=== PATIENT | female | born 1965 | race Caucasian/White ===

== ENCOUNTER 2019-07-06 21:34 | Emergency (ER) | payer MEDICARE ==
[~2019-07-06] VITALS: Ht 165.1 cm; Wt 78.2 kg
[2019-07-06 21:41] VITALS: Ht 165.1 cm; Wt 78.2 kg
[2019-07-06 22:46] VITALS: BP 129/90
== END 2019-07-06 22:47 | disposition home or self-care (01) ==
LOC: D.ER 21:34
DX: F15.10 Other stimulant abuse, uncomplicated (principal); Z76.5 Malingerer [conscious simulation]